=== PATIENT | female | born 1975 | race Caucasian/White ===

== ENCOUNTER 2017-04-28 21:37 | Emergency (ER) | payer MEDICAID ==
[~2017-04-28] VITALS: Ht 170.2 cm; Wt 95.5 kg
[~2017-04-28 21:37] MED LIST: CIP750 PO; DOXY150T PO; METR375C2 PO
[2017-04-28] MEDS ORDERED: HYDR25TA PO (21:52)
[2017-04-28] MEDS ORDERED: SULF-168 PO (21:52)
[2017-04-28 22:18] LABS: BASOPHILS # (AUTO) 0.02 K/uL (0.00-0.20); BASOPHILS % (AUTO) 0.4 % (0.0-2.0); EOSINOPHILS # (AUTO) 0.17 K/uL (0.00-0.70); EOSINOPHILS % (AUTO) 3.14 % (1.0-6.0); HEMOGLOBIN 12.6 g/dL (12.0-16.0); LYMPHOCYTES # (AUTO) 2.3 K/uL (1.0-4.8); LYMPHOCYTES % (AUTO) 42.4 % (22.0-44.0); MEAN CORPUSCULAR HEMOGLOBIN 29.5 pg (26.0-34.0); MEAN CORPUSCULAR HGB CONC 32.4 G/dL (31.0-37.0); MEAN CORPUSCULAR VOLUME 91 fL (80-100); MONOCYTES # (AUTO) 0.5 K/uL (0.1-1.0); MONOCYTES % (AUTO) 8.2 % (2.0-9.0); NEUTROPHILS # (AUTO) 2.5 K/uL (1.8-7.7); PLATELET COUNT (AUTO) 231 K/uL (150-450); RED BLOOD CELL COUNT(AUTO) 4.28 MIL/uL (4.00-5.20); RED CELL DISTRIBUTION WIDTH 15.8 % (11.5-14.5); WHITE BLOOD COUNT (AUTO) 5.5 K/uL (4.5-11.0)
[2017-04-28 22:28] LABS: ADD UA MICROSCOPIC YES; APPEARANCE,URINE CLOUDY (CLEAR); GLUCOSE, URINE (UA) NEGATIVE (NEGATIVE); KETONES,URINE NEGATIVE (NEGATIVE); LEUKOCYTE ESTERASE ,URINE MODERATE (NEGATIVE); OCCULT BLOOD,URINE LARGE (NEGATIVE); PROTEIN,URINE POS 1+ (NEGATIVE)
[2017-04-28 22:34] LABS: CREATININE 1.41 mg/dL (0.60-1.30); POTASSIUM 3.7 mmol/L (3.5-5.1)
[2017-04-28 22:38] LABS: WBC,URINE 26-50 /HPF (0-5)
[2017-04-28 22:41] LABS: ALBUMIN 3.7 g/dL (3.4-5.0); BILIRUBIN,TOTAL 0.3 mg/dL (0.1-1.0); TOTAL PROTEIN, SERUM 7.4 g/dL (6.4-8.2)
[2017-04-29] MEDS ORDERED: CefTRIAXone SODIUM 1 GM/VIAL IM ONE (02:00)
[2017-04-29] MEDS ORDERED: ACETAMINOPHEN/CODEINE 300-30 MG TABLET PO ONE (02:00)
[2017-04-29] MEDS ORDERED: LIDOCAINE HCL/PF 1% 2 ML VIAL IM ONE (02:00)
[2017-04-29] MEDS ORDERED: PHENAZOPYRIDINE HCL 100 MG TABLET PO ONE (02:00)
[2017-04-29 02:15] VITALS: BP 161/110
== END 2017-04-29 02:31 | disposition home or self-care (01) ==
LOC: EMS 21:42
DX: N39.0 Urinary tract infection, site not specified (principal); I10 Essential (primary) hypertension
CPT/HCPCS: 36415; 80053; 81001; 83690; 84703; 85025; 87077; 87086; 87186; 96372; 99284; J0696; J3490

== ENCOUNTER 2018-04-27 02:33 | Emergency (ER) | payer MEDICAID ==
[~2018-04-27] VITALS: Ht 170.2 cm; Wt 90.9 kg
[~2018-04-27 02:33] MED LIST changes: -CIP750 PO; -DOXY150T PO; +HYDR25TA PO; -METR375C2 PO; +SULF1TAB4 PO
[2018-04-27] MEDS ORDERED: HYDROCODONE/ACETAMINOPHEN 5-325 MG TABLET PO ONE (04:30)
[2018-04-27] MEDS ORDERED: KETOROLAC TROMETHAMINE 60 MG/2 ML VIAL IM ONE (04:30)
[2018-04-27] MEDS ORDERED: AmLODIPine BESYLATE 5 MG TABLET PO ONE (04:30)
[2018-04-27 05:06] LABS: BASOPHILS % (AUTO) 0.3 % (0.0-2.0); EOSINOPHILS % (AUTO) 1.9 % (1.0-6.0); HEMATOCRIT 37.9 % (36-46); HEMOGLOBIN 12.5 g/dL (12.0-16.0); LYMPHOCYTES # (AUTO) 1.7 K/uL (1.0-4.8); LYMPHOCYTES % (AUTO) 26.4 % (22.0-44.0); MEAN CORPUSCULAR HEMOGLOBIN 28.8 pg (26.0-34.0); MEAN CORPUSCULAR HGB CONC 33.1 G/dL (31.0-37.0); MEAN CORPUSCULAR VOLUME 87 fL (80-100); MONOCYTES # (AUTO) 0.5 K/uL (0.1-1.0); MONOCYTES % (AUTO) 7.2 % (2.0-9.0); NEUTROPHILS # (AUTO) 4.1 K/uL (1.8-7.7); NEUTROPHILS % (AUTO) 64.2 % (40.0-70.0); PLATELET COUNT (AUTO) 215 K/uL (150-450); RED BLOOD CELL COUNT(AUTO) 4.35 MIL/uL (4.00-5.20)
[2018-04-27 05:10] LABS: ANION GAP 4 mmol/L (8-16); CALCIUM, TOTAL 8.5 mg/dL (8.8-10.5); CARBON DIOXIDE 30 mmol/L (22-29); CHLORIDE 103 mmol/L (98-107); CREATININE 0.97 mg/dL (0.60-1.30); GLOMERULAR FILTR. RATE CALC > 60 mL/min (>60); GLUCOSE,RANDOM 106 mg/dL (70-110); POTASSIUM 3.9 mmol/L (3.5-5.1); SODIUM SERUM 137 mmol/L (136-145); UREA NITROGEN, BLOOD 20 mg/dL (7-18)
[2018-04-27] MEDS ORDERED: CloNIDine HCL 0.1 MG TABLET PO ONE (05:45)
[2018-04-27 06:25] VITALS: BP 171/110
== END 2018-04-27 06:36 | disposition home or self-care (01) ==
LOC: EMS 02:34
DX: S50.11XA Contusion of right forearm, initial encounter (principal); S60.221A Contusion of right hand, initial encounter; I10 Essential (primary) hypertension; F17.210 Nicotine dependence, cigarettes, uncomplicated; W22.8XXA Striking against or struck by other objects, initial encounter; Y93.89 Activity, other specified; Y92.89 Other specified places as the place of occurrence of the external cause; Y99.8 Other external cause status
CPT/HCPCS: 29240; 36415; 73090; 73130; 80048; 84703; 85025; 96372; 99285; 99406; J1885

== ENCOUNTER 2020-08-03 09:56 | Emergency (ER) | payer OTHER ==
[~2020-08-03] VITALS: Ht 170.2 cm; Wt 109.1 kg
[~2020-08-03 09:56] MED LIST changes: +AMLO-257 PO; +ASPI-1111 PO; +ATOR40TA28 PO; -HYDR25TA PO; -SULF1TAB4 PO
[2020-08-03 10:56] LABS: APPEARANCE,URINE CLOUDY (CLEAR); BILIRUBIN,URINE NEGATIVE (NEGATIVE); GLUCOSE, URINE (UA) NEGATIVE (NEGATIVE); KETONES,URINE NEGATIVE (NEGATIVE); LEUKOCYTE ESTERASE ,URINE LARGE (NEGATIVE); NITRATE,URINE POSITIVE (NEGATIVE); OCCULT BLOOD,URINE LARGE (NEGATIVE); PROTEIN,URINE POS 1+ (NEGATIVE); UROBILINOGEN,URINE 0.2 mg/dL (<=1.0)
[2020-08-03 11:10] LABS: BACTERIA,URINE Many /HPF (None Seen); SQUAMOUS EPITHELIAL CELL,UR Moderate /LPF (None Seen); WBC,URINE 26-50 /HPF (0-5)
[2020-08-03] MEDS: ACETAMINOPHEN 500 MG TABLET PO ONE (11:53)
[2020-08-03] MEDS: PHENAZOPYRIDINE HCL 100 MG TABLET PO ONE (11:53)
[2020-08-03] MEDS: CEPHALEXIN MONOHYDRATE 500 MG CAPSULE PO ONE (11:53)
[2020-08-03 12:57] LABS: COVID AG,FIA SOURCE NASOPHARYNGEAL
[2020-08-03 13:32] VITALS: BP 147/81
== END 2020-08-03 13:43 | disposition home or self-care (01) ==
LOC: EMS 10:02
DX: J06.9 Acute upper respiratory infection, unspecified (principal); N39.0 Urinary tract infection, site not specified; M79.10 Myalgia, unspecified site; I10 Essential (primary) hypertension; F17.210 Nicotine dependence, cigarettes, uncomplicated; F19.90 Other psychoactive substance use, unspecified, uncomplicated; Z20.828 Contact with and (suspected) exposure to other viral communicable diseases; Z79.82 Long term (current) use of aspirin
CPT/HCPCS: 87086; 87426; 99406; 81001-TC; 84703-TC; 87077-TC; 87186-TC; Z7502; Z7610

== ENCOUNTER 2020-10-23 07:47 | Emergency (ER) | payer OTHER ==
[~2020-10-23] VITALS: Ht 175.3 cm; Wt 95.5 kg
[2020-10-23 07:52] VITALS: BP 141/77
[2020-10-23] MEDS ORDERED: LIDOCAINE 5% TRANSDERMAL PATCH TD ONE (08:30)
[2020-10-23] MEDS ORDERED: KETOROLAC TROMETHAMINE 60 MG/2 ML VIAL IM ONE (08:30)
[2020-10-23] MEDS ORDERED: CYCLOBENZAPRINE HCL 10 MG TABLET PO ONE (08:30)
== END 2020-10-23 09:50 | disposition home or self-care (01) ==
LOC: EMS 07:52
DX: S39.012A Strain of muscle, fascia and tendon of lower back, initial encounter (principal); I10 Essential (primary) hypertension; F15.90 Other stimulant use, unspecified, uncomplicated; F17.210 Nicotine dependence, cigarettes, uncomplicated; Z79.82 Long term (current) use of aspirin; Z79.899 Other long term (current) drug therapy; X50.9XXA Other and unspecified overexertion or strenuous movements or postures, initial encounter; Y93.89 Activity, other specified; Y92.89 Other specified places as the place of occurrence of the external cause; Y99.8 Other external cause status
CPT/HCPCS: 96372; 99283; J1885

== ENCOUNTER 2022-12-14 01:40 | Emergency (ER) | payer OTHER ==
[~2022-12-14] VITALS: Ht 170.2 cm; Wt 95.0 kg
[~2022-12-14 01:40] MED LIST changes: -ASPI-1111 PO; +ASPI-1444 PO
[2022-12-14 01:45] VITALS: BP 157/107
[2022-12-14] MEDS ORDERED: METOPROLOL PO (11:30)
== END 2022-12-14 03:22 | disposition left against medical advice (07) ==
LOC: EMS 01:41
DX: H57.11 Ocular pain, right eye (principal); Z53.21 Procedure and treatment not carried out due to patient leaving prior to being seen by health care provider

== ENCOUNTER 2022-12-14 11:26 | Emergency (ER) | payer OTHER ==
[~2022-12-14] VITALS: Ht 170.2 cm; Wt 95.0 kg
[2022-12-14 11:28] VITALS: BP 160/115
[2022-12-14] MEDS ORDERED: METOPROLOL PO (11:30)
== END 2022-12-14 13:38 | disposition left against medical advice (07) ==
LOC: EMS 12:16
DX: T15.91XA Foreign body on external eye, part unspecified, right eye, initial encounter (principal); Z53.21 Procedure and treatment not carried out due to patient leaving prior to being seen by health care provider

== ENCOUNTER 2023-10-11 19:24 | Emergency (ER) | payer OTHER ==
[~2023-10-11] VITALS: Ht 170.2 cm; Wt 100.0 kg
[~2023-10-11 19:24] MED LIST changes: -ASPI-1444 PO; +METOPROLOL PO
[2023-10-11 19:47] VITALS: TEMP 98.2
[2023-10-11 20:04] LABS: APPEARANCE,URINE HAZY (CLEAR); BILIRUBIN,URINE NEGATIVE (NEGATIVE); COLOR,URINE LIGHT YELLOW (YELLOW); GLUCOSE, URINE (UA) NEGATIVE (NEGATIVE); KETONES,URINE NEGATIVE (NEGATIVE); LEUKOCYTE ESTERASE ,URINE TRACE (NEGATIVE); NITRATE,URINE POSITIVE (NEGATIVE); OCCULT BLOOD,URINE NEGATIVE (NEGATIVE); PROTEIN,URINE 30-70 mg/dL (NEGATIVE); SPECIFIC GRAVITIY, URINE 1.022 (1.003-1.030); UROBILINOGEN,URINE <=1.0 mg/dL (<=1.0)
[2023-10-11 20:19] LABS: BACTERIA,URINE Many /HPF (None Seen); RBC,URINE None Seen /HPF (0-2); SQUAMOUS EPITHELIAL CELL,UR Many /LPF (None Seen)
[2023-10-11 23:09] VITALS: BP 135/92; PULSE 90; RESP 16
[2023-10-11] MEDS ORDERED: LIDOCAINE/PF 1% 2 ML VIAL IM ONE (23:30)
[2023-10-11] MEDS ORDERED: CefTRIAXone SODIUM 1 GM/VIAL IM ONE (23:30)
[2023-10-11 23:56] LABS: COVID AG,FIA SOURCE NASAL SWAB
[2023-10-11] MEDS ORDERED: CEPH-558 PO (23:57)
[2023-10-11 23:58] LABS: BASOPHILS % (AUTO) 0.3 % (0.0-2.0); EOSINOPHILS % (AUTO) 3.4 % (1.0-6.0); HEMOGLOBIN 12.4 g/dL (12.0-16.0); LYMPHOCYTES # (AUTO) 2.4 K/uL (1.0-4.8); LYMPHOCYTES % (AUTO) 44.4 % (22.0-44.0); MEAN CORPUSCULAR HEMOGLOBIN 29.7 pg (26.0-34.0); MEAN CORPUSCULAR HGB CONC 32.7 G/dL (31.0-37.0); MEAN CORPUSCULAR VOLUME 91 fL (80-100); MONOCYTES # (AUTO) 0.3 K/uL (0.1-1.0); MONOCYTES % (AUTO) 6.5 % (2.0-9.0); NEUTROPHILS # (AUTO) 2.4 K/uL (1.8-7.7); NEUTROPHILS % (AUTO) 45.4 % (40.0-70.0); PLATELET COUNT (AUTO) 238 K/uL (150-450); RED BLOOD CELL COUNT(AUTO) 4.18 MIL/uL (4.00-5.20); RED CELL DISTRIBUTION WIDTH 14.6 % (11.5-14.5); WHITE BLOOD COUNT (AUTO) 5.4 K/uL (4.5-11.0)
[2023-10-12 00:21] LABS: ALANINE AMINOTRANSFERASE 34 U/L (12-78); ALBUMIN 3.6 g/dL (3.4-5.0); ALKALINE PHOSPHATASE 155 U/L (46-116); ANION GAP 3 mmol/L (8-16); ASPARTATE AMINOTRANSFERASE 24 U/L (15-37); BILIRUBIN,TOTAL 0.2 mg/dL (0.1-1.0); CALCIUM, TOTAL 9.1 mg/dL (8.8-10.5); CARBON DIOXIDE 32 mmol/L (22-29); CHLORIDE 105 mmol/L (98-107); CREATININE 1.43 mg/dL (0.60-1.30); GLOMERULAR FILTR. RATE CALC 40 mL/min (>60); GLUCOSE,RANDOM 106 mg/dL (70-110); POTASSIUM 3.7 mmol/L (3.5-5.1); SODIUM SERUM 140 mmol/L (136-145); TOTAL PROTEIN, SERUM 7.7 g/dL (6.4-8.2); UREA NITROGEN, BLOOD 29 mg/dL (7-18)
[2023-10-12 00:25] LABS: LACTIC ACID 0.8 mmol/L (0.4-2.0)
[2023-10-12 00:36] LABS: SARS-COV2 (COVID) ANTIGEN,FIA Negative (Negative)
== END 2023-10-12 00:07 | disposition home or self-care (01) ==
LOC: EMS 19:25
DX: N39.0 Urinary tract infection, site not specified (principal); I10 Essential (primary) hypertension; F17.210 Nicotine dependence, cigarettes, uncomplicated; Z98.890 Other specified postprocedural states; Z20.822 Contact with and (suspected) exposure to COVID-19
CPT/HCPCS: 99283; 87426; 80053; 81001; 83605; 85025; 36415; 87086; 87186; 81025; 96372; J0696; J3490; C9803

== ENCOUNTER 2025-01-05 22:49 | Emergency (ER) | payer OTHER ==
[~2025-01-05] VITALS: Ht 170.2 cm; Wt 100.0 kg
[~2025-01-05 22:49] MED LIST changes: +CEPH-558 PO
[2025-01-05 23:26] VITALS: BP 166/121; PULSE 92; RESP 20; TEMP 98.2; O2SAT 99
[2025-01-05] MEDS ORDERED: METO25XL PO (23:29)
[2025-01-05 23:50] LABS: APPEARANCE,URINE CLEAR (CLEAR); BILIRUBIN,URINE NEGATIVE (NEGATIVE); COLOR,URINE LIGHT YELLOW (YELLOW); GLUCOSE, URINE (UA) NEGATIVE (NEGATIVE); KETONES,URINE NEGATIVE (NEGATIVE); LEUKOCYTE ESTERASE ,URINE SMALL (NEGATIVE); OCCULT BLOOD,URINE NEGATIVE (NEGATIVE); PH,URINE 5.5 (5.0-8.0); PROTEIN,URINE 30-70 mg/dL (NEGATIVE); SPECIFIC GRAVITIY, URINE 1.021 (1.003-1.030); UROBILINOGEN,URINE <=1.0 mg/dL (<=1.0)
[2025-01-06 00:44] LABS: BACTERIA,URINE Many /HPF (None Seen); NITRATE,URINE POSITIVE (NEGATIVE); RBC,URINE None Seen /HPF (0-2); SQUAMOUS EPITHELIAL CELL,UR Few /LPF (None Seen)
[2025-01-06] MEDS ORDERED: CEFU250T87 PO (01:22)
== END 2025-01-06 00:49 | disposition left against medical advice (07) ==
LOC: EMS 22:59
DX: N39.0 Urinary tract infection, site not specified (principal); I10 Essential (primary) hypertension; F17.210 Nicotine dependence, cigarettes, uncomplicated; B96.20 Unspecified Escherichia coli [E. coli] as the cause of diseases classified elsewhere; Z76.0 Encounter for issue of repeat prescription; Z79.899 Other long term (current) drug therapy; Z87.440 Personal history of urinary (tract) infections; Z90.5 Acquired absence of kidney
CPT/HCPCS: 81001; 87077; 87086; 99283